=== PATIENT | male | born 1995 | race Caucasian/White ===

== ENCOUNTER 2017-12-30 05:09 | Emergency (ER) | payer SELFPAY ==
[~2017-12-30] VITALS: Ht 177.8 cm; Wt 81.6 kg
[2017-12-30] MEDS ORDERED: IBUPROFEN 400 MG TABLET ONE (05:42)
[2017-12-30] MEDS: IBUPROFEN 400 MG TABLET PO ONE (05:44)
== END 2017-12-30 05:49 | disposition home or self-care (01) ==
LOC: ER 05:11
DX: B35.3 Tinea pedis (principal); Z59.0 Homelessness
CPT/HCPCS: 99282; A4606